=== PATIENT | female | born 1990 | race Caucasian/White ===

== ENCOUNTER 2019-11-09 17:28 | Emergency (ER) | payer MEDICAID ==
[~2019-11-09] VITALS: Ht 162.6 cm; Wt 68.1 kg
[~2019-11-09 17:28] MED LIST: LORA-269 PO
[2019-11-09 17:50] VITALS: BP 124/72
--- NOTE | 2019-11-09 17:57 | NUR ---
Pt states she has been coughing up some black specks and thinks she could have bruised lungs.
--- NOTE | 2019-11-09 18:00 | NUR ---
Pt concerned that she has been infected with a rapidly growing lung cancer.
[2019-11-09] MEDS ORDERED: AZIT-72 PO (18:14)
[2019-11-09] MEDS ORDERED: ALBU8HFA PO (18:14)
== END 2019-11-09 18:55 | disposition home or self-care (01) ==
LOC: ER 17:28
DX: R05 Cough (principal); R06.2 Wheezing; F12.90 Cannabis use, unspecified, uncomplicated; Z72.89 Other problems related to lifestyle; Z59.0 Homelessness; Z56.0 Unemployment, unspecified; Z88.1 Allergy status to other antibiotic agents; Z79.899 Other long term (current) drug therapy
CPT/HCPCS: 71045; 99283

== ENCOUNTER 2019-11-11 11:32 | Emergency (ER) | payer MEDICAID ==
[~2019-11-11] VITALS: Ht 165.1 cm; Wt 52.2 kg
[~2019-11-11 11:32] MED LIST changes: +ALBU8HFA PO; +AZIT-72 PO
[2019-11-11 12:30] LABS: BASOPHILS # (AUTO) 0.1 X10'3 (0-0.2); BASOPHILS % (AUTO) 0.8 % (0-1); EOSINOPHILS # (AUTO) 0.1 X10'3 (0-0.9); EOSINOPHILS % (AUTO) 0.9 % (0-6); HEMATOCRIT 41.4 % (35.0-45.0); HEMOGLOBIN 13.9 g/dl (12.0-16.0); LYMPHOCYTES # (AUTO) 1.4 X10'3 (1.1-4.8); LYMPHOCYTES % (AUTO) 19.7 % (21-51); MEAN CORPUSCULAR HEMOGLOBIN 29.7 PG (27.0-31.0); MEAN CORPUSCULAR HGB CONC 33.6 g/dL (33.0-36.5); MEAN CORPUSCULAR VOLUME 88.2 FL (78-98); MEAN PLATELET VOLUME 8.5 FL (7.4-10.4); MONOCYTES # (AUTO) 0.8 X10'3 (0-0.9); MONOCYTES % (AUTO) 10.7 % (2-12); NEUTROPHILS # (AUTO) 4.9 X10'3 (1.8-7.7); NEUTROPHILS % (AUTO) 67.9 % (42-75); PLATELET COUNT 279 X10'3 (140-440); RED BLOOD COUNT 4.69 X10'6 (4.20-5.60); RED CELL DISTRIBUTION WIDTH 12.6 % (11.5-14.5); WHITE BLOOD COUNT 7.3 X10'3 (4.5-11.0)
[2019-11-11 12:34] LABS: CLARITY,URINE CLOUDY (Clear); COLOR,URINE YELLOW (Yellow); GLUCOSE, URINE NEGATIVE (Neg); KETONES,URINE >=80 mg/dl (Neg); LEUKOCYTE ESTERASE ,URINE NEGATIVE (Neg); NITRITES, URINE NEGATIVE (Neg); OCCULT BLOOD,URINE SMALL (Neg); PH,URINE 5.5 (4.8-8.0); PROTEIN,URINE 100 mg/dl (Neg); URINE HCG NEGATIVE (NEG)
[2019-11-11 12:36] LABS: UA COLLECTION TYPE CLN CATCH MIDSTREAM
[2019-11-11 12:41] LABS: ALANINE AMINOTRANSFERASE 26 U/L (12-78); ALBUMIN 4.5 G/DL (3.4-5.0); ALBUMIN/GLOBULIN RATIO 1.2 (1.1-1.5); ALKALINE PHOSPHATASE 79 IU/L (46-116); ANION GAP 15 (8-16); ASPARTATE AMINO TRANSFERASE 21 U/L (10-37); BILIRUBIN,TOTAL 1.6 MG/DL (0.1-1.0); BLOOD UREA NITROGEN 16 MG/DL (7-18); BUN/CREATININE RATIO 19.3 (6.6-38.0); CALCIUM 9.3 MG/DL (8.5-10.1); CHLORIDE 105 MMOL/L (99-107); CREATININE 0.83 MG/DL (0.40-0.90); GLUCOSE 85 MG/DL (70-104); POTASSIUM 4.1 MMOL/L (3.5-5.1); SODIUM 143 MMOL/L (135-145); TOTAL CARBON DIOXIDE 23.1 MMOL/L (24-32); TOTAL PROTEIN 8.4 G/DL (6.4-8.2); eGFR 81 ML/MIN
[2019-11-11 12:41] LABS: BACTERIA,URINE 1+ /HPF (Neg); COARSE GRANULAR CAST 0-3 /LPF (NEGATIVE); MUCUS STRANDS MANY /LPF (Neg); RBC,URINE 0-2 /HPF (0-2); SQUAMOUS EPITHELIAL CELL,UR MANY /LPF (FEW); WBC,URINE 0-4 /HPF (0-4)
[2019-11-11 12:47] LABS: URINE AMPHETAMINE SCREEN NEGATIVE (Neg); URINE BARBITUATE SCREEN NEGATIVE (Neg); URINE BENZODIAZEPINES SCREEN NEGATIVE (Neg); URINE CANNABINOID SCREEN POSITIVE (Neg); URINE COCAINE SCREEN NEGATIVE (Neg); URINE METHADONE SCREEN NEGATIVE (Neg); URINE OPIATE SCREEN NEGATIVE (Neg); URINE PHENCYCLIDINE SCREEN NEGATIVE (Neg)
[2019-11-11 12:57] LABS: ETHANOL < 0.010 GM/DL (0.0-0.010)
--- NOTE | 2019-11-11 14:09 | NUR ---
Pt BIB [facility]. They stated she called 911 to report to police that she was being poisoned with formaldehyde. However, she drove herself to police department along with her 3 month old son. [facility] placed her on 5150 and brought her to ER. Upon assessment she appears very tearful. Thoughts are incoherent, nonsensical. Seems to be paranoid. Boyfriend has pts son and arrived to ER to bring her breastpump since she is exclusively breatsfeeding. He stated this happened once before in [facility]. She continues to ask for physician to explain her lab results to her. Her labwork was gone over by myself and I reassured her that she is not being poisoned. States she suffers from bipolar and CPTSD. States she was abandoned by her mother when she was 5 and has lived in foster home after foster home. She takes no medications. Reassurance given.
--- NOTE | 2019-11-11 14:23 | NUR ---
packet faxed, talking with [facility] now
[2019-11-11 17:57] VITALS: BP 130/65
== END 2019-11-11 17:58 | disposition home or self-care (01) ==
LOC: ER 11:32
DX: F22 Delusional disorders (principal); F17.200 Nicotine dependence, unspecified, uncomplicated; F12.90 Cannabis use, unspecified, uncomplicated; Z72.89 Other problems related to lifestyle; Z90.89 Acquired absence of other organs; Z56.0 Unemployment, unspecified; Z59.0 Homelessness; Z88.0 Allergy status to penicillin; Z79.2 Long term (current) use of antibiotics
CPT/HCPCS: 36415; 80053; 80305; 80320; 81001; 81025; 84443; 85025; 99285

== ENCOUNTER 2019-12-18 14:17 | Emergency (ER) | payer MEDICAID ==
[~2019-12-18] VITALS: Ht 162.6 cm; Wt 63.6 kg
[2019-12-18 14:28] VITALS: BP 112/72
[2019-12-18] MEDS ORDERED: CEPH500C5 PO (15:57)
[2019-12-18] MEDS ORDERED: SULF1TAB49 PO (15:57)
== END 2019-12-18 16:15 | disposition home or self-care (01) ==
LOC: ER 14:17
DX: L02.416 Cutaneous abscess of left lower limb (principal); L02.415 Cutaneous abscess of right lower limb; L02.01 Cutaneous abscess of face; F12.90 Cannabis use, unspecified, uncomplicated; Z90.49 Acquired absence of other specified parts of digestive tract; Z59.0 Homelessness; Z56.0 Unemployment, unspecified; Z88.0 Allergy status to penicillin
CPT/HCPCS: 87070; 87077; 87186; 99283

== ENCOUNTER 2020-02-09 10:51 | Emergency (ER) | payer MEDICAID ==
[~2020-02-09] VITALS: Ht 162.6 cm; Wt 70.4 kg
[2020-02-09 12:05] VITALS: BP 111/81
[2020-02-09] MEDS ORDERED: CEPH-572 PO (13:00)
[2020-02-09] MEDS ORDERED: SULF1TAB49 PO (13:00)
== END 2020-02-09 13:16 | disposition home or self-care (01) ==
LOC: ER 10:52
DX: L02.01 Cutaneous abscess of face (principal); L70.9 Acne, unspecified; Z90.89 Acquired absence of other organs; Z72.89 Other problems related to lifestyle; Z56.0 Unemployment, unspecified; Z59.0 Homelessness; Z88.1 Allergy status to other antibiotic agents; Z79.2 Long term (current) use of antibiotics
CPT/HCPCS: 99283

== ENCOUNTER 2020-03-22 08:20 | Emergency (ER) | payer MEDICAID ==
[~2020-03-22] VITALS: Ht 162.6 cm; Wt 70.0 kg
[2020-03-22 09:18] VITALS: BP 119/59
[2020-03-22] MEDS ORDERED: CLIN30GE TOP (09:21)
[2020-03-22] MEDS ORDERED: DOXY100C76 PO (09:21)
== END 2020-03-22 09:41 | disposition home or self-care (01) ==
LOC: ER 08:21
DX: L98.8 Other specified disorders of the skin and subcutaneous tissue (principal); L02.01 Cutaneous abscess of face; Z90.89 Acquired absence of other organs; Z72.89 Other problems related to lifestyle; Z59.0 Homelessness; Z56.0 Unemployment, unspecified; Z88.1 Allergy status to other antibiotic agents; Z79.2 Long term (current) use of antibiotics
CPT/HCPCS: 87070; 87077; 87186; 99283

== ENCOUNTER 2021-08-01 11:55 | Emergency (ER) | payer MEDICAID ==
[~2021-08-01] VITALS: Ht 162.6 cm; Wt 77.3 kg
[~2021-08-01 11:55] MED LIST changes: -ALBU8HFA PO; -AZIT-72 PO; +CLIN30GE TOP; -LORA-269 PO
[2021-08-01 12:05] VITALS: BP 153/93
[2021-08-01] MEDS ORDERED: MUPI22OI30 TOP (13:34)
[2021-08-01] MEDS ORDERED: SULF1TAB49 PO (13:34)
== END 2021-08-01 13:45 | disposition home or self-care (01) ==
LOC: ER 11:55
DX: R21 Rash and other nonspecific skin eruption (principal); L01.00 Impetigo, unspecified; Z87.81 Personal history of (healed) traumatic fracture; Z59.00 Homelessness unspecified; Z88.0 Allergy status to penicillin; Z79.899 Other long term (current) drug therapy
CPT/HCPCS: 99283

== ENCOUNTER 2023-07-31 08:17 | Emergency (ER) | payer BC, MEDICAID ==
[~2023-07-31] VITALS: Ht 160 cm; Wt 72.7 kg
[2023-07-31] MEDS ORDERED: acetaminophen 325mg tablet PO ONE (09:00)
[2023-07-31] MEDS: normal saline 1000ml 1,000 ML IV ONE (09:16)
[2023-07-31] MEDS: acetaminophen 325mg tablet PO ONE (09:17)
[2023-07-31 09:34] LABS: BASOPHILS # (AUTO) 0.1 X10'3 (0-0.2); BASOPHILS % (AUTO) 1.1 % (0-1); EOSINOPHILS # (AUTO) 0.2 X10'3 (0-0.9); EOSINOPHILS % (AUTO) 2.1 % (0-6); HEMATOCRIT 40.3 % (35.0-45.0); HEMOGLOBIN 13.7 g/dl (12.0-16.0); LYMPHOCYTES # (AUTO) 1.4 X10'3 (1.1-4.8); LYMPHOCYTES % (AUTO) 16.2 % (21-51); MEAN CORPUSCULAR HEMOGLOBIN 29.8 PG (27.0-31.0); MEAN CORPUSCULAR HGB CONC 33.9 g/dL (33.0-36.5); MEAN CORPUSCULAR VOLUME 87.9 FL (78-98); MEAN PLATELET VOLUME 8.1 FL (7.4-10.4); MONOCYTES # (AUTO) 0.6 X10'3 (0-0.9); MONOCYTES % (AUTO) 7.1 % (2-12); NEUTROPHILS # (AUTO) 6.2 X10'3 (1.8-7.7); NEUTROPHILS % (AUTO) 73.5 % (42-75); PLATELET COUNT 305 X10'3 (140-440); RED BLOOD COUNT 4.59 X10'6 (4.20-5.60); RED CELL DISTRIBUTION WIDTH 13.4 % (11.5-14.5); WHITE BLOOD COUNT 8.4 X10'3 (4.5-11.0)
[2023-07-31 09:46] LABS: ALBUMIN 3.8 G/DL (3.4-5.0); ANION GAP 7 (8-16); BLOOD UREA NITROGEN 13 MG/DL (7-18); BUN/CREATININE RATIO 17.8 (10.0-20.0); CALCIUM 8.7 MG/DL (8.5-10.1); CHLORIDE 104 MMOL/L (99-107); CREATININE 0.73 MG/DL (0.40-0.90); GLUCOSE 94 MG/DL (70-104); POTASSIUM 4.2 MMOL/L (3.5-5.1); SODIUM 141 MMOL/L (135-145); TOTAL CARBON DIOXIDE 29.6 MMOL/L (24-32); eCRCL 90 ML/MIN; eGFR > 90 ML/MIN
[2023-07-31 09:54] LABS: URINE HCG NEGATIVE (NEG)
[2023-07-31] MEDS ORDERED: iohexol 300mg/ml 100ml inj. ONE (09:57)
[2023-07-31] MEDS ORDERED: LORA-269 PO (11:12)
[2023-07-31 11:21] VITALS: BP 124/49; PULSE 75; RESP 18; TEMP 98.4; O2SAT 98
== END 2023-07-31 11:24 | disposition home or self-care (01) ==
LOC: ER 08:18
DX: R68.84 Jaw pain (principal); M26.69 Other specified disorders of temporomandibular joint
CPT/HCPCS: 36415; 70487; 80048; 81025; 85025; 96360; 99285; J3490; J7030; Q9967